=== PATIENT | male | born 1990 | race Caucasian/White ===

== ENCOUNTER 2016-06-04 08:53 | Emergency (ER) | payer SELFPAY ==
[~2016-06-04] VITALS: Wt 90.7 kg
[~2016-06-04 08:53] MED LIST: BACTRIM DS 8001 TA1 PO; CEPHALEXIN500 M1 PO; CLEOCIN HCL150 MG PO; ERYTHROMYCIN OPH1 GM OPH; MOTRIN800 MG PO; NAPROSYN500 MG PO; NORCO 5-325 TA1 EACH PO; TRAMADOL HCL50 MG PO
[2016-06-04 09:11] VITALS: BP 149/86
[2016-06-04] MEDS ORDERED: PENICILLIN-VK500 MG PO (10:11)
[2016-06-04] MEDS ORDERED: ZOFRAN ODT4 MG SL (10:11)
== END 2016-06-04 11:27 | disposition home or self-care (01) ==
LOC: ED 08:53
DX: K08.89 Other specified disorders of teeth and supporting structures (principal); J06.9 Acute upper respiratory infection, unspecified; F17.200 Nicotine dependence, unspecified, uncomplicated